=== PATIENT | female | born 1990 | race Caucasian/White ===

== ENCOUNTER 2017-06-05 11:56 | Emergency (ER) | payer BC ==
[2017-06-05 13:23] LABS: Hematocrit 44 % (35-47); Hemoglobin 14.9 g/dl (12.0-16.0); Mean Corpuscular HGB Conc 34 g/dl (31-36); Mean Corpuscular Hemoglobin 32 pg (27-31); Mean Corpuscular Volume 94 fL (80-97); Mean Platelet Volume 9 um3 (7.4-10.4); Red Blood Count 4.72 10^6/ul (4.0-5.4); Red Cell Distribution Width 12 % (10.5-15); White Blood Count 7.7 10^3/ul (3.5-10.8)
[2017-06-05 13:39] LABS: ALT 12 U/L (7-52); AST 15 U/L (13-39); Albumin 4.4 g/dL (3.2-5.2); Alkaline Phosphatase 42 U/L (34-104); Anion Gap 7 mmol/L (2-11); BUN/Creatinine Ratio 17.3 (8-20); Blood Urea Nitrogen 13 mg/dL (6-24); CO2 Carbon Dioxide 24 mmol/L (22-32); Calcium 9.5 mg/dL (8.6-10.3); Chloride 103 mmol/L (101-111); EGFR African American 117.5 (>60); EGFR Non-African American 91.4 (>60); Globulin 3.3 g/dL (2-4); Glucose 87 mg/dL (70-100); Potassium 3.6 mmol/L (3.5-5.0); Sodium 134 mmol/L (133-145); Total Protein 7.7 g/dL (6.4-8.9)
[2017-06-05 14:09] LABS: TSH (Thyroid Stimulating Horm) 0.84 mcIU/mL (0.34-5.60)
[2017-06-05 15:28] VITALS: BP 117/72
--- NOTE | 2017-06-05 18:57 | ED ---
Liliana Patino Auryana, scribed for Rey Jones MD on 06/05/17 at 1320 . Neurological HPI - HPI Summary HPI Summary: 27 year old female presents with vertigo and right sided facial droop starting last night. Patient reports that if she attempts to stand up she is unable to - becomes nauseated and vomits. She denies any LE and UE weakness. She does report an ear infection for the last week- with improvement in ear pain but still has vertigo. LMP 20 May lasting 4 days. - History of Current Complaint Chief Complaint: EDGeneral Stated Complaint: RT SIDE FACIAL DROOP/RT EAR PAIN/DIZZY Time Seen by Provider: 06/05/17 12:36 Hx Obtained From: Patient Hx Last Menstrual Period: Last week Onset/Duration: Gradual Onset, Started hours ago - last night Timing: Constant Onset Severity: Mild Current Severity: Mild Neurological Deficit Location: Facial Pain Intensity: 3 - MATTHEWS but does not c/o MATTHEWS on ED physician visit Pain Scale Used: 0-10 Numeric Character: Dizzy Aggravating: Position Change/Supine to Erect, Change in Head Position Associated Signs and Symptoms: Positive: Unsteady Gait, Headache - does not c/o on ED physician visit, Nausea/Vomiting - Allergy/Home Medications Allergies/Adverse Reactions: Allergies Allergy/AdvReac Type Severity Reaction Status Date / Time Azithromycin [From Zithromax] Allergy Rash And Verified 06/05/17 12:29 Itching Home Medications: Home Medications DOXYcycline CAP(*) [DOXYcycline 100MG CAP(*)] 100 mg PO BID 06/05/17 [History Confirmed 06/05/17] HYDROcodone/ACETAMIN 5-325 MG* [Trent 5-325 TAB*] 1 tab PO QID 06/05/17 [ History Confirmed 06/05/17] PMH/Surg Hx/FS Hx/Imm Hx Infectious Disease History: No Infectious Disease History: Denies: Traveled Outside the [place] in Last 30 Days - Family History Known Family History: Positive: Cardiac Disease, Other - breast cancer, alcoholism - Social History Alcohol Use: Occasionally Hx Substance Use: Yes Substance Use Type: Reports: Marijuana - occasional marijuana use Substance Use Comment - Amount & Last Used: dony Hx Tobacco Use: Yes Smoking Status (MU): Former Smoker - occasional smoker, quit 1 year ago Type: Cigarettes Review of Systems Positive: Other - vertigo . Negative: Fever Eyes: Negative ENT: Negative Cardiovascular: Negative Respiratory: Negative Positive: Nausea Genitourinary: Negative Musculoskeletal: Negative Skin: Negative Positive: Headache, Weakness - left sided facial weakness Psychological: Normal All Other Systems Reviewed And Are Negative: Yes Physical Exam - Summary Physical Exam Summary: VITAL SIGNS: Reviewed. GENERAL: ~Patient is a well-developed and nourished female who is lying comfortable in the stretcher. ~Patient is not in any acute respiratory distress. HEAD AND FACE: No signs of trauma. ~No ecchymosis, hematomas or skull depressions. No sinus tenderness. EYES: PERRLA, EOMI x 2, No injected conjunctiva, no nystagmus. No photophobia. EARS: Hearing grossly intact. Ear canals and tympanic membranes are within normal limits. MOUTH: Oropharynx within normal limits. NECK: Supple, trachea is midline, no adenopathy, no JVD, no carotid bruit, no c- spine tenderness, neck with full ROM. No meningeal signs, no Kernig's or brudzinskis signs. CHEST: Symmetric, no tenderness at palpation LUNGS: Clear to auscultation bilaterally. No wheezing or crackles. CVS: Regular rate and rhythm, S1 and S2 present, no murmurs or gallops appreciated. ABDOMEN: Soft, non-tender. No signs of distention. No rebound no guarding, and no masses palpated. Bowel sounds are normal. EXTREMITIES: FROM in all major joints, no edema, no cyanosis or clubbing. NEURO: Alert and oriented x 3. No acute neurological deficits. Speech is normal and follows commands. Wrinkles only half of forehead - unable to wrinkle right side. Decreased sensation at right side of face. SKIN: Dry and warm Triage Information Reviewed: Yes Vital Signs On Initial Exam: Initial Vitals Temp Pulse Resp BP Pulse Ox 97.8 F 90 17 103/74 100 06/05/17 11:59 06/05/17 11:59 06/05/17 11:59 06/05/17 11:59 06/05/17 11:59 Vital Signs Reviewed: Yes Diagnostics - Vital Signs Vital Signs Temp Pulse Resp BP Pulse Ox 06/05/17 12:22 98.2 F 62 16 111/68 100 06/05/17 12:20 52 100 06/05/17 12:17 111/68 06/05/17 11:59 97.8 F 90 17 103/74 100 - Laboratory Lab Results: Lab Results 06/05/17 06/05/17 06/05/17 Range/Units 13:07 13:07 13:07 WBC 7.7 (3.5-10.8) 10^3/ul RBC 4.72 (4.0-5.4) 10^6/ul Hgb 14.9 (12.0-16.0) g/dl Hct 44 (35-47) % MCV 94 (80-97) fL MCH 32 H (27-31) pg MCHC 34 (31-36) g/dl RDW 12 (10.5-15) % Plt Count 187 (150-450) 10^3/ul MPV 9 (7.4-10.4) um3 Neut % (Auto) 67.1 (38-83) % Lymph % (Auto) 22.0 L (25-47) % [place] % (Auto) 10.1 H (1-9) % Eos % (Auto) 0.2 (0-6) % Baso % (Auto) 0.6 (0-2) % Absolute Neuts (auto) 5.1 (1.5-7.7) 10^3/ul Absolute Lymphs (auto) 1.7 (1.0-4.8) 10^3/ul Absolute Monos (auto) 0.8 (0-0.8) 10^3/ul Absolute Eos (auto) 0 (0-0.6) 10^3/ul Absolute Basos (auto) 0 (0-0.2) 10^3/ul Absolute Nucleated RBC 0 10^3/ul Nucleated RBC % 0 Sodium 134 (133-145) mmol/L Potassium 3.6 (3.5-5.0) mmol/L Chloride 103 (101-111) mmol/L Carbon Dioxide 24 (22-32) mmol/L Anion Gap 7 (2-11) mmol/L BUN 13 (6-24) mg/dL Creatinine 0.75 (0.51-0.95) mg/dL Est GFR ( Amer) 117.5 (>60) Est GFR (Non-Af Amer) 91.4 (>60) BUN/Creatinine Ratio 17.3 (8-20) Glucose 87 (70-100) mg/dL Lactic Acid 0.7 (0.5-2.0) mmol/L Calcium 9.5 (8.6-10.3) mg/dL Total Bilirubin 0.70 (0.2-1.0) mg/dL AST 15 (13-39) U/L ALT 12 (7-52) U/L Alkaline Phosphatase 42 (34-104) U/L Total Protein 7.7 (6.4-8.9) g/dL Albumin 4.4 (3.2-5.2) g/dL Globulin 3.3 (2-4) g/dL Albumin/Globulin Ratio 1.3 (1-3) TSH 0.84 (0.34-5.60) mcIU/mL Beta HCG, Quant < 0.60 mIU/mL Result Diagrams: 06/05/17 13:07 06/05/17 13:07 Lab Statement: Any lab studies that have been ordered have been reviewed, and results considered in the medical decision making process. - EKG 13:25 EKG Interpretation: sinus bradycardia @ 57. no ST elevation. Course/Dx - Course Assessment/Plan: 27 year old female presents with vertigo and right sided facial droop starting last night. Patient reports that if she attempts to stand up she is unable to -becomes nauseated and vomits. She denies any LE and UE weakness. She does report an ear infection for the last week- with improvement in ear pain but still has vertigo. LMP 20 May lasting 4 days. EKG - sinus bradycardia @ 57. no ST elevation. Test result WNL. 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 I did send for Lyme disease titers. I offered patient a head CT to R/O any CVA vs mastoiditis vs Covington's palsy since patient was diagnoses with right otitis media. However, the patient reports that she does not have any other weakness and the pain of the right ear is improving, now almost gone, so she declined CT. She also did not want to take any medications in the ED and requested them to be sent to the pharmacy. She stated that she does not have money to pay for imaging or medications. Patient signed an AMA form since she did not want a Head CT or any medications. I will discharge the patient home and sent prescriptions for Zofran, Valtrex, Prednisone, and Meclizine to the pharmacy. At this point patient will be discharged home. Patient is hemodynamically stable and A&O x3. - Differential Dx Differential Diagnoses Neuro: Positive: Covington's Palsy, Cerebrovascular Accident, Transient Ischemic Attack, Other - Mastoiditis - Diagnoses Provider Diagnoses: Covington's palsy Discharge - Discharge Plan Condition: Stable Disposition: AGAINST MEDICAL ADVICE Prescriptions: Meclizine TAB* [Antivert 12.5 TAB*] 25 mg PO TID PRN #30 tab PRN Reason: Vertigo Ondansetron ODT TAB* [Zofran 4 MG Odt TAB*] 4 mg PO Q6H PRN #10 tab.odt PRN Reason: Vomiting ValACYclovir (*) [Valtrex 1 GM(*)] 1 gm PO TID #21 tab predniSONE TAB* [Deltasone TAB*] 40 mg PO DAILY #10 tab Patient Education Materials: [place]ton Palsy (ED) Referrals: [facility] [place] PHYSICIAN REFERRAL [Outside] - 2 Days Additional Instructions: PATIENT IS TO RETURN TO THE EMERGENCY DEPARTMENT IF SHE DEVELOPS FEVER, CHILLS, NAUSEA, VOMITING, LETHARGY, OR ANY WEAKNESS. The documentation as recorded by the Liliana renee Auryana accurately reflects the service I personally performed and the decisions made by , Rey Jones MD.
== END 2017-06-05 15:21 | disposition left against medical advice (07) ==
LOC: ED 11:56
DX: G51.0 Bell's palsy (principal); R42 Dizziness and giddiness; R51 Headache; R53.1 Weakness; Z87.891 Personal history of nicotine dependence; Z53.21 Procedure and treatment not carried out due to patient leaving prior to being seen by health care provider
CPT/HCPCS: 36415; 80053; 83605; 84443; 84702; 85025; 86618; 93005; 99283